=== PATIENT | female | born 1995 | race Caucasian/White ===

== ENCOUNTER 2016-08-05 21:38 | Emergency (ER) | payer OTHER ==
[~2016-08-05] VITALS: Ht 165.1 cm; Wt 56.7 kg
[~2016-08-05 21:38] MED LIST: BCPILLS PO
[2016-08-05 21:39] VITALS: Ht 165.1 cm; Wt 56.7 kg
[2016-08-05] MEDS ORDERED: VALA1TAB31 PO (22:18)
--- NOTE | 2016-08-05 22:27 | DIAGNOSTIC IMAGING REPORT ---
LEFT HAND MIN 3 VIEWS ROUTINE CLINICAL HISTORY: L hand injury trauma. Pain. COMPARISON: None. DISCUSSION: The bones and joint spaces appear intact. There is no evidence of fracture, dislocation or bony disease. There is no evidence for soft tissue swelling. IMPRESSION: Negative study. Electronically signed by: Cruz Cooper M.D. 08/05/2016 10:26 PM Dictated Date/Time: 08/05/2016 10:26 PM
[2016-08-05 22:41] VITALS: BP 151/89; PULSE 89; TEMP 37; O2SAT 98
--- NOTE | 2016-08-05 22:41 | EMERGENCY ROOM VISIT NOTE ---
History First contact with patient: 21:59 Chief Complaint: HAND PAIN/INJURY Stated Complaint: BRUISING AND PAIN ON LEFT HAND History of Present Illness The patient is a 20 year old female who presents to the Emergency Room with complaints of persistent left hand pain. The patient reports that she was attempting to close a gate to her pasture when her horse ran into the gate, causing him to hit her hand. The patient reports persistent pain, swelling and bruising. She denies any pain extending into the wrist or forearm. Denies any paresthesias or numbness. The patient is [id number], and rates her discomfort a 3 out of 10. Review of Systems 10 system review was performed and was negative except for pertinent positives and negatives as indicated in history of present illness Past Medical/Surgical History Medical Problems: (1) No significant medical problems Surgical Problems: (1) No significant past surgical history Family History Unremarkable Social History Smoking Status: Never Smoker Alcohol Use: none Drug Use: none Marital Status: single Housing Status: lives with family Occupation Status: student Current/Historical Medications Scheduled Control Pills ( Control Pills), 1 TAB PO DAILY Scheduled PRN Valacyclovir Hcl (Valtrex), 1 GM PO UD PRN for UNDECIDED Allergies Coded Allergies: No Known Allergies (Unverified , 04/06/12) Physical Exam Vital Signs Date Time Temp Pulse Resp B/P (MAP) Pulse Ox O2 Delivery O2 Flow Rate FiO2 08/05/16 21:39 37.0 108 18 151/89 99 Room Air Physical Exam CONSTITUTIONAL: Healthy and well nourished. Alert and oriented X 3 with positive affect. HEENT: Normocephalic, atraumatic. Pupils equal, round and reactive. NECK: Full active range of motion without discomfort. MUSCULOSKELETAL: Examination shows edema over the middle and radial aspect of the bursal hand. She is tender through the second and third dorsal MCPs. No focal tenderness through the thumb, fourth or fifth fingers or anatomic snuffbox. Range of motion of the wrist does not worsen her discomfort. Capillary refill is less than 2 seconds. INTEGUMENTARY: No rash or other significant dermatologic conditions noted. NEUROLOGIC: Left hand and fingers are sensory intact. Medical Decision & Procedures ER Provider Diagnostic Interpretation: My interpretation of left hand x-rays does not show any acute fractures or dislocations. Radiologist report is as follows: LEFT HAND MIN 3 VIEWS ROUTINE CLINICAL HISTORY: L hand injury trauma. Pain. COMPARISON: None. DISCUSSION: The bones and joint spaces appear intact. There is no evidence of fracture, dislocation or bony disease. There is no evidence for soft tissue swelling. IMPRESSION: Negative study. ED Course Patient history and physical exam were performed. Nurse's notes were reviewed. The patient refused any analgesics. X-rays of the left hand were normal. The patient was encouraged to intermittently apply ice and perform range of motion exercises of the fingers to prevent stiffness. Ibuprofen and Tylenol in alternating fashion if needed for additional pain relief. She was encouraged to follow-up with orthopedics if symptoms are not improving within the next 7 days. The patient has been a patient with [facility]. The patient was happy with plan of care, voiced understanding of all discharge instructions, and rated her pain a 4 out of 10 at the time of discharge. Medical Decision Impression Primary Impression: Contusion of left hand Departure Information Referrals No Doctor, Assigned (PCP) Patient Instructions [facility] Problem Qualifiers Primary Impression: Contusion of left hand Encounter type: initial encounter Qualified Codes: S60.222A - Contusion of left hand, initial encounter
== END 2016-08-05 22:43 | disposition home or self-care (01) ==
LOC: C.EDB 21:39 → C.EDD 22:43
DX: S60.222A Contusion of left hand, initial encounter (principal); W55.19XA Other contact with horse, initial encounter; Z79.3 Long term (current) use of hormonal contraceptives

== ENCOUNTER → 2017-03-08 | Outpatient (CLI) | payer OTHER ==
[~2017-03-08] MED LIST changes: +VALA1TAB31 PO
== END | disposition home or self-care (01) ==
LOC: C.PAPS 11:25
PROVIDERS: ATTEND Physician Assistant
DX: Z12.4 Encounter for screening for malignant neoplasm of cervix (principal)

== ENCOUNTER → 2017-03-08 | Outpatient (CLI) | payer OTHER | END | disposition home or self-care (01) | LOC: C.LABSPEC 11:01 | PROVIDERS: ATTEND Physician Assistant | DX: Z12.4 Encounter for screening for malignant neoplasm of cervix (principal) ==

== ENCOUNTER 2017-04-28 12:36 | Emergency (ER) | payer OTHER ==
[~2017-04-28] VITALS: Ht 165.1 cm; Wt 57.7 kg
[~2017-04-28 12:36] MED LIST changes: -BCPILLS PO
[2017-04-28 12:44] VITALS: Ht 165.1 cm; Wt 57.7 kg
[2017-04-28] MEDS ORDERED: METOPROLOL TARTRATE 1 MG/ML VIAL IV STA (13:19)
[2017-04-28] MEDS ORDERED: SODIUM CHLORIDE 0.9% 1000ML 1,000 ML IV ONE ×2 (13:30→15:15)
--- NOTE | 2017-04-28 13:32 | DIAGNOSTIC IMAGING REPORT ---
CHEST ONE VIEW PORTABLE CLINICAL HISTORY: tachycardia cardiac arrhythmia COMPARISON STUDY: No previous studies for comparison. FINDINGS: The bones soft tissues and hemidiaphragms are normal. The cardiomediastinal silhouette is normal. The lungs are clear. The pulmonary vasculature is normal. IMPRESSION: Negative chest. The above report was generated using voice recognition software. It may contain grammatical, syntax or spelling errors. Electronically signed by: Cruz Cooper M.D. 04/28/2017 1:31 PM Dictated Date/Time: 04/28/2017 1:31 PM
[2017-04-28 13:38] LABS: BASO % 0.1 %; BASO ABS # 0.01 K/uL (0-0.2); EOS % 0.1 %; EOS ABS # 0.01 K/uL (0-0.5); HEMATOCRIT 40.7 % (37-47); HEMOGLOBIN 14.5 g/dL (12.0-16.0); IG# 0.01 K/uL (0.00-0.02); LYMPH % 21.4 %; LYMPH ABS # 1.74 K/uL (1.2-3.4); MEAN CELL VOLUME 85.1 fL (80-100); MEAN CORPUSCULAR HEMOGLOBIN 30.3 pg (25-34); MEAN CORPUSCULAR HGB CONC 35.6 g/dl (32-36); MEAN PLATELET VOLUME 9.4 fL (7.4-10.4); MONO % 3.9 %; MONO ABS # 0.32 K/uL (0.11-0.59); NEUT % 74.4 %; NEUT ABS # 6.04 K/uL (1.4-6.5); PLATELET COUNT 218 K/uL (130-400); RED CELL DISTRIBUTION WIDTH CV 12.3 % (11.5-14.5); RED CELL DISTRIBUTION WIDTH SD 38.1 fL (36.4-46.3); WHITE BLOOD COUNT 8.13 K/uL (4.8-10.8)
[2017-04-28 13:39] VITALS: TEMP 37.1
--- NOTE | 2017-04-28 13:44 | EMERGENCY ROOM VISIT NOTE ---
History First contact with patient: 13:07 Chief Complaint: TACHYCARDIA Stated Complaint: TACHYCARDIA Nursing Triage Summary: pt presents to ed via als from school with c/o elevated hr. pt was at a drs office doing a rotation and became dizzy with movement. pt was hooked to a monitor and showed a rate of 160s. per medic pt was in 120's-130s. pt states having temporal headache on and off x's week. pt states becomes sob with exertion. History of Present Illness The patient is a 21 year old female who presents to the Emergency Room with complaints of intermittent tachycardia over the last month. The patient noticed that when she exercises her heart rate goes to over 200 bpm. She is monitoring her heart rate with exercise for a class at school. She also had a presyncopal episode earlier this week when she was shadowing a PA. She also notes that she has been increasingly short of breath with exertion. The patient denies any known cardiac disease. She does take control. No recent long travel. She does not smoke. No increase in caffeine use. No history of thyroid disease. Review of Systems 10 system review performed and negative unless noted in HPI or below Past Medical/Surgical History Medical Problems: (1) No significant medical problems Surgical Problems: (1) No significant past surgical history Family History Mother-left bundle branch block Social History Smoking Status: Never Smoker Alcohol Use: none Drug Use: none Marital Status: single Housing Status: lives with family Occupation Status: student Current/Historical Medications Scheduled Control Pills ( Control Pills), 1 TAB PO DAILY Physical Exam Vital Signs Date Time Temp Pulse Resp B/P (MAP) Pulse Ox O2 Delivery O2 Flow Rate FiO2 04/28/17 16:57 94 16 111/69 100 04/28/17 16:15 90 04/28/17 15:38 98 16 113/77 Room Air 04/28/17 14:30 105 16 119/87 04/28/17 13:39 37.1 105 16 131/87 98 Room Air 04/28/17 13:39 128 131/87 04/28/17 12:54 127 136/92 127 139/95 128 145/98 04/28/17 12:50 130 04/28/17 12:48 Room Air 04/28/17 12:44 37.1 133 18 143/92 98 Room Air Physical Exam GENERAL: 21-year-old female, slightly anxious in appearance, SKIN: The skin was without rashes, erythema, edema, or bruising. HEAD: Normocephalic atraumatic. MOUTH: Mucous membranes dry. NECK: Supple without nuchal rigidity. No lymphadenopathy. Cervical spine is nontender. No JVD. HEART: Tachycardic, regular rhythm without murmurs gallops or rubs. LUNGS: Clear to auscultation bilaterally without wheezes, rales or rhonchi. No accessory muscle use. ABDOMEN: Positive bowel sounds x 4.Soft, nontender, without organomegaly. No guarding or rebound tenderness. MUSCULOSKELETAL: No muscle atrophy, erythema, or edema noted.. Strength 5/5 throughout. NEURO: Patient was alert and oriented to person place and time. Normal sensation to touch. No focal neurological deficits. Medical Decision & Procedures ER Provider Diagnostic Interpretation: CXR IMPRESSION: Negative chest. The above report was generated using voice recognition software. It may contain grammatical, syntax or spelling errors. Electronically signed by: Cruz Cooper M.D. 04/28/2017 1:31 PM Dictated Date/Time: 04/28/2017 1:31 PM The status of this report is Signed. Draft = Not yet reviewed or approved by Radiologist. Signed = Reviewed and approved by Radiologist. Laboratory Results 04/28/17 13:05 Red Blood Count 4.78, Mean Corpuscular Volume 85.1, Mean Corpuscular Hemoglobin 30.3, Mean Corpuscular Hemoglobin Concent 35.6, Mean Platelet Volume 9.4, Neutrophils (%) (Auto) 74.4, Lymphocytes (%) (Auto) 21.4, Monocytes (%) (Auto) 3.9, Eosinophils (%) (Auto) 0.1, Basophils (%) (Auto) 0.1, Neutrophils # (Auto) 6.04, Lymphocytes # (Auto) 1.74, Monocytes # (Auto) 0.32, Eosinophils # (Auto) 0.01, Basophils # (Auto) 0.01 04/28/17 13:05 Test 04/28/17 13:05 04/28/17 13:19 04/28/17 14:20 White Blood Count 8.13 K/uL (4.8-10.8) Red Blood Count 4.78 M/uL (4.2-5.4) Hemoglobin 14.5 g/dL (12.0-16.0) Hematocrit 40.7 % (37-47) Mean Corpuscular Volume 85.1 fL (80-100) Mean Corpuscular Hemoglobin 30.3 pg (25-34) Mean Corpuscular Hemoglobin Concent 35.6 g/dl (32-36) Platelet Count 218 K/uL (130-400) Mean Platelet Volume 9.4 fL (7.4-10.4) Neutrophils (%) (Auto) 74.4 % Lymphocytes (%) (Auto) 21.4 % Monocytes (%) (Auto) 3.9 % Eosinophils (%) (Auto) 0.1 % Basophils (%) (Auto) 0.1 % Neutrophils # (Auto) 6.04 K/uL (1.4-6.5) Lymphocytes # (Auto) 1.74 K/uL (1.2-3.4) Monocytes # (Auto) 0.32 K/uL (0.11-0.59) Eosinophils # (Auto) 0.01 K/uL (0-0.5) Basophils # (Auto) 0.01 K/uL (0-0.2) RDW Standard Deviation 38.1 fL (36.4-46.3) RDW Coefficient of Variation 12.3 % (11.5-14.5) Immature Granulocyte % (Auto) 0.1 % Immature Granulocyte # (Auto) 0.01 K/uL (0.00-0.02) D-Dimer 260 ug/L FEU (0-500) Anion Gap 7.0 mmol/L (3-11) Est Creatinine Clear Calc Drug Dose 96.5 ml/min Estimated GFR () 116.8 Estimated GFR (Non- 100.8 BUN/Creatinine Ratio 20.5 (10-20) Calcium Level 9.4 mg/dl (8.5-10.1) Magnesium Level 2.1 mg/dl (1.8-2.4) Total Bilirubin 0.6 mg/dl (0.2-1) Aspartate Amino Transf (AST/SGOT) 16 U/L (15-37) Alanine Aminotransferase (ALT/SGPT) 26 U/L (12-78) Alkaline Phosphatase 98 U/L (45-117) Creatine Kinase MB 0.8 ng/ml (0.5-3.6) Troponin I < 0.015 ng/ml (0-0.045) Total Protein 8.0 gm/dl (6.4-8.2) Albumin 4.2 gm/dl (3.4-5.0) Globulin 3.8 gm/dl (2.5-4.0) Albumin/Globulin Ratio 1.1 (0.9-2) Thyroid Stimulating Hormone (TSH) 1.580 uIu/ml (0.300-4.500) Lyme Disease IgG Antibody NEG (NEG) Lyme Disease IgM Antibody NEG (NEG) Creatine Kinase MB Ratio (0-3.0) Urine Color YELLOW Urine Appearance CLEAR (CLEAR) Urine pH 7.0 (4.5-7.5) Urine Specific [place] 1.007 (1.000-1.030) Urine Protein NEG (NEG) Urine Glucose (UA) NEG (NEG) Urine Ketones NEG (NEG) Urine Occult Blood NEG (NEG) Urine Nitrite NEG (NEG) Urine Bilirubin NEG (NEG) Urine Urobilinogen NEG (NEG) Urine Leukocyte Esterase NEG (NEG) Urine Test NEG (NEG) Urine Opiates Screen NEG (NEG) Urine Methadone, Qualitative NEG (NEG) Urine Barbiturates NEG (NEG) Urine Phencyclidine (PCP) Level NEG (NEG) Ur Amphetamine/Methamphetamine NEG (NEG) MDMA (Ecstasy) Screen NEG (NEG) Urine Benzodiazepines Screen NEG (NEG) Urine Cocaine Metabolite NEG (NEG) Urine Marijuana (THC) NEG (NEG) Medications Administered Medications (Trade) Dose Ordered Sig/Nia Route Start Time Stop Time Status Last Admin Dose Admin Metoprolol Tartrate (Lopressor Iv) 2.5 mg NOW STAT IV 04/28/17 13:19 04/28/17 13:22 DC 04/28/17 13:39 2.5 MG Sodium Chloride 1,000 ml @ 999 mls/hr Q1H1M ONCE IV 04/28/17 13:30 04/28/17 14:30 DC 04/28/17 13:37 999 MLS/HR Sodium Chloride 1,000 ml @ 999 mls/hr Q1H1M ONCE IV 04/28/17 15:15 04/28/17 16:15 DC 04/28/17 15:15 999 MLS/HR ECG Per My Interpretation Indication: chest pain Rate (beats per minute): 116 Rhythm: sinus tachycardia Comparison ECG Date: no prior available ED Course Patient was seen and examined Vital signs including blood pressure were reviewed medications list was verified with patient Labs were obtained, and a saline lock was established An EKG was performed and reviewed by myself. The patient was put on a monitor. She was given metoprolol 2.5 mg IV and hydrated with 1 L of normal saline. The patient was reassessed by myself and my supervising physician. A bedside echocardiogram was performed. No significant abnormalities were noted. The patient was hydrated with an additional liter of normal saline Upon reevaluation, the patient's heart rate was much improved. She was asymptomatic. We thoroughly discussed her workup. She voiced understanding. She and her mother were comfortable with her being discharged home. The patient was given a follow-up appointment with cardiology I reviewed discharge instructions the patient. They voiced understanding and had no further questions. Medical Decision Differential diagnosis: Acute myocardial infarction, cardiac arrhythmia, anemia , thyroid abnormality, pneumothorax, pneumonia, bronchitis, pericarditis, electrolyte imbalance, pulmonary embolus, dehydration This patient is a 21-year-old female presents emergency department with tachycardia and dyspnea on exertion. On exam, she was significantly tachycardic , but regular. She also appeared slightly dehydrated. EKG shows sinus tachycardia. The patient's troponin is negative. A d-dimer was also checked and within normal limits. A bedside echocardiogram was performed. No significant abnormalities were noted. Pulmonary embolus would be highly unlikely. It is possible that dehydration is playing a component in the patient 's symptoms. Her heart rate dramatically improved with IV fluids. I believe she is stable to be discharged home with close follow-up from cardiology. The patient was given a follow-up appointment prior to discharge. She was comfortable with this plan. She was also encouraged to drink more fluid, abstain from exercise and driving until further assessment by cardiology. She was in agreement with this plan. She also agrees to return to the emergency department with any new or worsening symptoms This chart was completed in part utilizing [employer] Speech Voice Recognition software. Attempts were made to minimize the grammatical errors, random word insertions, pronoun errors and incomplete sentences. Any formal questions or concerns about the content, text or information contained within the body of this dictation should be directly addressed to the provider for clarification. Medication Reconcilliation Current Medication List: was personally reviewed by me Blood Pressure Screening Patient's blood pressure: Elevated blood pressure Blood pressure disposition: Elevated BP felt to be situational Impression Primary Impression: Tachycardia Departure Information Dispostion Home / Self-Care Condition CONVENIENCE OF NEW CAR SALESPERSON Referrals Delfino Hutchison M.D. (PCP) Colton Quick M.D. Patient Instructions [facility] Additional Instructions You were evaluated in the emergency department for a fast heart rate. It is possible that dehydration is playing a role in your symptoms. Please increase fluids dramatically over the next several days. Get plenty of rest. Avoid caffeine and alcohol. Please follow-up with the private branch exchange repairer as scheduled. Please also do not exercise and abstain from driving until further evaluation by the private branch exchange repairer. Please also follow up with your primary care physician for a recheck within one week Please do not hesitate to return to the emergency department with any new, worsening or concerning symptoms Work Instructions Return To Work: 2 days School Instructions Return To School: 2 days
[2017-04-28 13:56] LABS: ALBUMIN 4.2 gm/dl (3.4-5.0); ALT/SGPT 26 U/L (12-78); AST/SGOT 16 U/L (15-37); BLOOD UREA NITROGEN 17 mg/dl (7-18); CALCIUM 9.4 mg/dl (8.5-10.1); CARBON DIOXIDE 23 mmol/L (21-32); CREATININE 0.83 mg/dl (0.60-1.20); GLUCOSE 129 mg/dl (70-99); POTASSIUM 3.6 mmol/L (3.5-5.1); SODIUM 136 mmol/L (136-145)
[2017-04-28 14:06] LABS: ALKALINE PHOSPHATASE 98 U/L (45-117); CKMB 0.8 ng/ml (0.5-3.6)
[2017-04-28 16:57] VITALS: BP 111/69; PULSE 94; O2SAT 100
[2017-04-28] MEDS ORDERED: BCPILLS PO (20:20)
== END 2017-04-28 16:58 | disposition home or self-care (01) ==
LOC: EDBD 12:36 → C.EDB 12:37
DX: R00.0 Tachycardia, unspecified (principal); Z79.3 Long term (current) use of hormonal contraceptives

== ENCOUNTER 2017-10-11 17:29 | Emergency (ER) | payer OTHER ==
[~2017-10-11] VITALS: Ht 165.1 cm; Wt 57.1 kg
[~2017-10-11 17:29] MED LIST changes: +BCPILLS PO; -VALA1TAB31 PO
[2017-10-11 17:39] VITALS: TEMP 37; Ht 165.1 cm; Wt 57.1 kg
[2017-10-11] MEDS ORDERED: SODIUM CHLORIDE 0.9% 500ML 500 ML IV STA (17:49)
[2017-10-11] MEDS ORDERED: VALA500T60 PO (18:20)
--- NOTE | 2017-10-11 18:27 | EMERGENCY ROOM VISIT NOTE ---
History Report prepared by Dre: Bianca Lima Under the Supervision of: Dr. Bimal Walton M.D. First contact with patient: 17:42 Chief Complaint: SYNCOPE (NEAR SYNCOPE) Stated Complaint: PRE SYNCOPE EPISODE EARLIER Nursing Triage Summary: see triage note History of Present Illness The patient is a 21 year old female who presents to the Emergency Room with complaints of an episode of near-syncope beginning today. 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 She notes she was very sweaty and had a headache at that time, both of which have now resolved. She denies any exposure to fumes and notes she ate and drank as usual today. The patient denies any chance of . She denies blood in stools or urine, vaginal discharge or bleeding, or cough. The patient denies recent long car or plane rides and notes she does not take any medications aside from control. She reports she has had similar symptoms the past few mornings, and had a full cardiac workup 5 months ago for the same symptoms. The patient notes she had a halter monitor and echo done at that time, and nothing was found. Source of History: patient Onset: today Position: head Quality: other (near-syncope) Timing: other (episode) Associated Symptoms: No LOC, No cough, No urinary symptoms Note: Denies: blood in stools, vaginal bleeding or discharge Review of Systems See HPI for pertinent positives and negatives. A total of ten systems were reviewed and were otherwise negative. Past Medical & Surgical Medical Problems: (1) No significant medical problems Surgical Problems: (1) No significant past surgical history Family History No pertinent family history stated. Social History Smoking Status: Never Smoker Alcohol Use: none Drug Use: none Marital Status: single Housing Status: lives with family Occupation Status: student Current/Historical Medications Scheduled Control Pills ( Control Pills), 1 TAB PO DAILY Valacyclovir (Valtrex), 500 MG PO TID Allergies Coded Allergies: No Known Allergies (Unverified , 10/11/17) Physical Exam Vital Signs Date Time Temp Pulse Resp B/P (MAP) Pulse Ox O2 Delivery O2 Flow Rate FiO2 10/11/17 19:18 98 18 115/80 100 10/11/17 17:39 37.0 107 16 146/82 100 Room Air Physical Exam Physical Exam GENERAL: She is oriented to person, place, and time. She appears well- developed and well-nourished. She does not appear distressed. HENT: Exam performed. Head: Normocephalic and atraumatic. Right Ear: External ear normal. No mastoid tenderness. Left Ear: External ear normal. No mastoid tenderness. Mouth/Throat: The oropharynx is clear and moist. No trismus in the jaw. No dental abscesses or uvula swelling. No oropharyngeal exudate or tonsillar abscesses. EYES: Conjunctivae and EOM are normal. Pupils are equal, round, and reactive to light. Right eye exhibits no discharge. Left eye exhibits no discharge. No scleral icterus. NECK: Normal range of motion. Neck supple. No JVD present. No spinous process tenderness present. No carotid bruit present. No rigidity. No tracheal deviation and normal range of motion present. No Brudzinski's sign and no Kernig 's sign noted. CV: Normal rate, regular rhythm, normal heart sounds and intact distal pulses. There is no peripheral edema. Palpable radial pulses bue. PULM/CHEST: Effort normal and breath sounds normal. No respiratory distress. No stridor. She has no wheezes. She has no rales. Chest Wall: She exhibits no tenderness. ABD: The abdomen is soft. Bowel sounds are normal. She has no distension. No mass is present. There is no tenderness. There is no rebound, no guarding, no Lynn's sign and no tenderness at McBurney's point. Rovsig negative MUSC/SKEL: Normal range of motion. There is no peripheral edema, tenderness or deformity. LYMPH: No cervical adenopathy. NEURO: She is alert and oriented to person, place, and time. She has normal strength. No cranial nerve deficit or sensory deficit. Coordination and gait normal. GCS eye subscore is 4. GCS verbal subscore is 5. GCS motor subscore is 6. Cerebellar tests wnl. SKIN: Skin is warm and dry. She is not diaphoretic. PSYCH: She has a normal mood and affect. Behavior is normal. Judgment and thought content normal. Medical Decision & Procedures ER Provider Diagnostic Interpretation: Radiology results as stated below per my review and radiologist interpretation: CHEST 2 VIEWS ROUTINE CLINICAL HISTORY: syncope dyspnea COMPARISON STUDY: 04/28/2017 FINDINGS: The bones soft tissues and hemidiaphragms are normal. The cardiomediastinal silhouette is normal. The lungs are clear. The pulmonary vasculature is normal. IMPRESSION: Negative chest. The above report was generated using voice recognition software. It may contain grammatical, syntax or spelling errors. Electronically signed by: Cruz Cooper M.D. 10/11/2017 7:02 PM Dictated Date/Time: 10/11/2017 7:02 PM Laboratory Results Test 10/11/17 17:55 10/11/17 18:00 10/11/17 18:10 Urine Color YELLOW Urine Appearance CLEAR (CLEAR) Urine pH 5.5 (4.5-7.5) Urine Specific Salol 1.012 (1.000-1.030) Urine Protein TRACE (NEG) Urine Glucose (UA) NEG (NEG) Urine Ketones TRACE (NEG) Urine Occult Blood NEG (NEG) Urine Nitrite NEG (NEG) Urine Bilirubin NEG (NEG) Urine Urobilinogen NEG (NEG) Urine Leukocyte Esterase TRACE (NEG) Urine WBC (Auto) 1-5 /hpf (0-5) Urine RBC (Auto) 0-4 /hpf (0-4) Urine Hyaline Casts (Auto) 1-5 /lpf (0-5) Urine Epithelial Cells (Auto) >30 /lpf (0-5) Urine Bacteria (Auto) NEG (NEG) Urine Test NEG (NEG) D-Dimer < 190 ug/L FEU (0-500) Bedside Hemoglobin 14.6 g/dl (12.0-16.0) Bedside Hematocrit 43 % (37-47) Bedside Sodium 138 mEq/L (135-144) Bedside Potassium 4.0 mEq/L (3.3-5.0) Bedside Chloride 103 mEq/L (101-112) Bedside Total CO2 23 mEq/l (24-31) Anion Gap 17.0 mmol/L (16-25) Bedside Blood Urea Nitrogen 19 mg/dl (7-18) Bedside Creatinine 0.8 mg/dl (0.6-1.3) Bedside Glucose (other) 91 mg/dl (70-99) Bedside Ionized Calcium (Emeterio) 1.17 mmol/l (1.12-1.32) Laboratory results reviewed by me Medications Administered Medications (Trade) Dose Ordered Sig/Nia Route Start Time Stop Time Status Last Admin Dose Admin Sodium Chloride 500 ml @ 999 mls/hr Q31M STAT IV 10/11/17 17:49 10/11/17 18:19 DC 10/11/17 18:11 999 MLS/HR Sodium Chloride 1,000 ml @ 999 mls/hr Q1H1M STAT IV 10/11/17 18:28 10/11/17 19:28 DC 10/11/17 18:31 999 MLS/HR ECG Per My Interpretation Indication: syncope (near-syncope) Rate (beats per minute): 111 Rhythm: sinus tachycardia Findings: T-wave inversion (lead 3), other (IA QS QTC intervals within normal limits. ) Comparison ECG Date: 04/2017 Change: no significant change ED Course 174: The patient was evaluated in room A12. A complete history and physical exam was performed. 174: Ordered Sodium Chloride 500 ml @ 999 mls/hr IV 1828: Ordered Sodium Chloride 1000 ml @ 999 mls/hr IV 1902: Labs within normal limits, negative D-Dimer. Patient says she is feeling better, EKG shows no changes from April 2017. Patient had extensive cardiac echo including negative echo and negative halter monitor. She will follow up with cardiology and PCP. DISCHARGE - Plan of care discussed with patient and questions answered. The patient was given both verbal and printed discharge instructions. The patient verbalized understanding and ability to comply. The patient is to seek outpatient follow up as noted in the discharge instructions. The patient verbalized understanding and ability to comply. The patient is discharged in stable condition. The patient was instructed to return for worsening symptoms. Medical Decision Labs within normal limits, negative D-Dimer. Patient says she is feeling better , EKG shows no changes from April 2017. Patient had extensive cardiac echo including negative echo and negative halter monitor. She will follow up with cardiology and PCP. DISCHARGE - Plan of care discussed with patient and questions answered. The patient was given both verbal and printed discharge instructions. The patient verbalized understanding and ability to comply. The patient is to seek outpatient follow up as noted in the discharge instructions. The patient verbalized understanding and ability to comply. The patient is discharged in stable condition. The patient was instructed to return for worsening symptoms. Medication Reconcilliation Current Medication List: was personally reviewed by me Blood Pressure Screening Patient's blood pressure: Elevated blood pressure Blood pressure disposition: Elevated BP felt to be situational Impression Primary Impression: Near syncope Scribe Attestation The scribe's documentation has been prepared under my direction and personally reviewed by me in its entirety. I confirm that the note above accurately reflects all work, treatment, procedures, and medical decision making performed by me. The chart was completed utilizing [employer] voice recognition software. Grammatical errors, random word insertions, pronoun errors, and incomplete sentences are an occasional consequence of this system due to software limitations, ambient noise, and hardware issues. Any formal questions or concerns about the content, text, or information contained within the body of this dictation should be directly addressed to the physician for clarification. Departure Information Dispostion Home / Self-Care Referrals Divya PondPMelissaA. (PCP) Forms HOME CARE DOCUMENTATION FORM, IMPORTANT VISIT INFORMATION Patient Instructions [facility]
[2017-10-11] MEDS ORDERED: SODIUM CHLORIDE 0.9% 1000ML 1,000 ML IV STA (18:28)
[2017-10-11 18:29] LABS: ISTAT CREATININE 0.8 mg/dl (0.6-1.3); ISTAT IONIZED CALCIUM 1.17 mmol/l (1.12-1.32)
--- NOTE | 2017-10-11 19:03 | DIAGNOSTIC IMAGING REPORT ---
CHEST 2 VIEWS ROUTINE CLINICAL HISTORY: syncope dyspnea COMPARISON STUDY: 04/28/2017 FINDINGS: The bones soft tissues and hemidiaphragms are normal. The cardiomediastinal silhouette is normal. The lungs are clear. The pulmonary vasculature is normal. IMPRESSION: Negative chest. The above report was generated using voice recognition software. It may contain grammatical, syntax or spelling errors. Electronically signed by: Cruz Cooper M.D. 10/11/2017 7:02 PM Dictated Date/Time: 10/11/2017 7:02 PM
[2017-10-11 19:18] VITALS: BP 115/80; PULSE 98; O2SAT 100
== END 2017-10-11 19:19 | disposition home or self-care (01) ==
LOC: C.EDB 17:30 → C.EDA 19:19
DX: R55 Syncope and collapse (principal); Z79.3 Long term (current) use of hormonal contraceptives